=== PATIENT | female | born 1985 | race Caucasian/White ===

== ENCOUNTER 2018-01-29 15:30 | Emergency (ER) | payer OTHER ==
[~2018-01-29] VITALS: Ht 157.5 cm; Wt 79.4 kg
[~2018-01-29 15:30] MED LIST: ACET325; ACET500 PO; ACYC400 PO; ALBU90OI INH; AMLO5; AZIT250 PO; BENZ100A PO; CEPH500 PO; CLIN150 PO; CLIN300 PO; CYCL10 PO; Carvedilol12.5 MG PO; DOCU100 PO; DOXY100 PO; FURO20 PO; HYDACE5 PO; HYDACE5325 PO; IBUP800 PO; IRON150C PO; IRON325 MG PO; LISI10; LISI5 PO; MAGCHL64ER PO; MELO7.5 PO; METO25ER PO; Mucinex600 MG PO; NAPR500 PO; OMEP20ER PO; ONDA4ODT MM; OXYACE5T PO; POTCHL20ER PO; PRED20 PO; PROCODE120 PO; PROM25 PO; Percocet 5-3251 EACH PO; Prinivil10 MG PO; Protonix40 MG PO; RXHYDACE PO; RXONDA4ODT MM; RXPROM25 PO; Verotin-Gr Cap1 EACH PO; Vibramycin100 MG PO; Zofran Odt4 MG PO; Zofran Odt4 MG SL; [UNRECOGNIZED DRUG - OTHER]
[2018-01-29] MEDS ORDERED: Ultram50 MG PO (16:45)
== END 2018-01-29 16:51 | disposition home or self-care (01) ==
LOC: ER 15:30
DX: S09.90XA Unspecified injury of head, initial encounter (principal); S16.1XXA Strain of muscle, fascia and tendon at neck level, initial encounter; F32.9 Major depressive disorder, single episode, unspecified; F17.200 Nicotine dependence, unspecified, uncomplicated; V89.2XXA Person injured in unspecified motor-vehicle accident, traffic, initial encounter
CPT/HCPCS: 70450; 72125; 96372; 99284; J3010; L0160

== ENCOUNTER 2018-03-09 18:31 | Emergency (ER) | payer OTHER ==
[~2018-03-09] VITALS: Ht 157.5 cm; Wt 76.2 kg
[~2018-03-09 18:31] MED LIST changes: +Ultram50 MG PO
== END 2018-03-09 19:21 | disposition home or self-care (01) ==
LOC: ER 18:31
DX: F41.0 Panic disorder [episodic paroxysmal anxiety] (principal); F32.9 Major depressive disorder, single episode, unspecified; F17.200 Nicotine dependence, unspecified, uncomplicated
CPT/HCPCS: 93005; 93010; 99283-25

== ENCOUNTER 2021-01-08 23:45 | Emergency (ER) | payer OTHER ==
[~2021-01-08] VITALS: Ht 157.5 cm; Wt 93.4 kg
[2021-01-09] MEDS ORDERED: PRED20 PO (02:01)
[2021-01-09] MEDS ORDERED: ALBU90OI INH (02:01)
== END 2021-01-09 02:31 | disposition home or self-care (01) ==
LOC: ER 23:45
DX: J98.01 Acute bronchospasm (principal); F17.290 Nicotine dependence, other tobacco product, uncomplicated; Z88.2 Allergy status to sulfonamides; Z91.09 Other allergy status, other than to drugs and biological substances; Z91.040 Latex allergy status; Z87.891 Personal history of nicotine dependence
CPT/HCPCS: 71045; 99284-25; A9270

== ENCOUNTER 2021-05-22 14:10 | Emergency (ER) | payer OTHER ==
[~2021-05-22] VITALS: Ht 157.5 cm; Wt 99.8 kg
[2021-05-22 16:09] LABS: SARS-Cov-2 (COVID-19) PCR, MMC NEGATIVE (NEGATIVE)
[2021-05-22] MEDS ORDERED: PSEU120ER PO (16:40)
== END 2021-05-22 16:50 | disposition home or self-care (01) ==
LOC: ER 14:10
PROVIDERS: Physician Assistant
DX: J40 Bronchitis, not specified as acute or chronic (principal); J06.9 Acute upper respiratory infection, unspecified; Z20.822 Contact with and (suspected) exposure to COVID-19; Z91.018 Allergy to other foods; Z88.2 Allergy status to sulfonamides; Z91.048 Other nonmedicinal substance allergy status; Z88.0 Allergy status to penicillin; Z91.040 Latex allergy status; Z79.899 Other long term (current) drug therapy; Z87.891 Personal history of nicotine dependence
CPT/HCPCS: 99283; U0004

== ENCOUNTER 2021-07-04 20:39 | Emergency (ER) | payer OTHER ==
[~2021-07-04] VITALS: Ht 157.5 cm; Wt 90.7 kg
[~2021-07-04 20:39] MED LIST changes: +PSEU120ER PO
[2021-07-04] MEDS ORDERED: PRED20 PO (22:49)
== END 2021-07-04 23:25 | disposition home or self-care (01) ==
LOC: ER 20:39
DX: J20.9 Acute bronchitis, unspecified (principal); F12.90 Cannabis use, unspecified, uncomplicated; Z77.22 Contact with and (suspected) exposure to environmental tobacco smoke (acute) (chronic); Z91.018 Allergy to other foods; Z91.048 Other nonmedicinal substance allergy status; Z88.0 Allergy status to penicillin; Z91.040 Latex allergy status; Z88.8 Allergy status to other drugs, medicaments and biological substances; Z79.899 Other long term (current) drug therapy; Z87.891 Personal history of nicotine dependence
CPT/HCPCS: 71045; 99283-25; A9270; J7512

== ENCOUNTER 2022-04-22 21:32 | Emergency (ER) | payer OTHER ==
[~2022-04-22] VITALS: Ht 157.5 cm; Wt 111.1 kg
[2022-04-23] MEDS ORDERED: Prednisone50 MG PO (01:04)
== END 2022-04-23 01:20 | disposition home or self-care (01) ==
LOC: ER 21:32
DX: J45.901 Unspecified asthma with (acute) exacerbation (principal); Z79.52 Long term (current) use of systemic steroids; Z91.040 Latex allergy status; Z91.018 Allergy to other foods; Z88.0 Allergy status to penicillin; Z88.2 Allergy status to sulfonamides; Z91.09 Other allergy status, other than to drugs and biological substances
CPT/HCPCS: 94640; 94664; J7512

== ENCOUNTER 2025-06-01 00:21 | Day surgery (SDC) | payer OTHER ==
[~2025-06-01] VITALS: Wt 108.6 kg
[~2025-06-01 00:21] MED LIST changes: +ASPI81CH PO; +ATOR20 PO; +BREYNA 160-4.10.3 GM IH; +FLUT.05NI; +GABA100 PO; +HUMIRA40 MG/0.2 SC; +INCRUSE ELLIPTA INH; +METO25 PO; +MONT10T PO; +OXAYDO5 M1 PO; +PANT40 PO; +Prednisone50 MG PO; +WARF5 PO; +ZYRTEC10 M2 PO
[2025-06-01 15:17] VITALS: BP 121/69
[2025-06-01] MEDS ORDERED: INFLIXIMAB DYYB IV SCH (15:30)
[2025-06-01] MEDS ORDERED: NS IV SCH (15:30)
[2025-06-01 16:07] VITALS: BP 114/68
[2025-06-01 16:23] VITALS: BP 107/65
[2025-06-01 16:38] VITALS: BP 105/71
[2025-06-01 16:54] VITALS: BP 103/63
[2025-06-01 17:13] VITALS: BP 118/64
== END 2025-06-01 17:45 | disposition home or self-care (01) ==
LOC: ATC 00:21
DX: L40.0 Psoriasis vulgaris (principal); J44.9 Chronic obstructive pulmonary disease, unspecified; Z87.891 Personal history of nicotine dependence; Z88.1 Allergy status to other antibiotic agents; Z91.040 Latex allergy status; Z88.0 Allergy status to penicillin; Z91.048 Other nonmedicinal substance allergy status; Z88.2 Allergy status to sulfonamides; Z91.018 Allergy to other foods
CPT/HCPCS: 96413; 96415; J7050; Q5103

== ENCOUNTER 2025-06-15 02:04 | Day surgery (SDC) | payer OTHER ==
[~2025-06-15] VITALS: Wt 107.2 kg
[2025-06-15] MEDS ORDERED: Infliximab-DYYB 500 MG in NS 250 ML IV SCH (06:00)
[2025-06-15 14:07] VITALS: BP 115/70
[2025-06-15 14:55] VITALS: BP 103/56
[2025-06-15 15:10] VITALS: BP 102/55
[2025-06-15 15:29] VITALS: BP 106/64
[2025-06-15 15:47] VITALS: BP 101/65
[2025-06-15 16:02] VITALS: BP 103/68
== END 2025-06-15 16:40 | disposition home or self-care (01) ==
LOC: ATC 02:04
DX: L40.0 Psoriasis vulgaris (principal); J44.9 Chronic obstructive pulmonary disease, unspecified; F32.A Depression, unspecified; I25.2 Old myocardial infarction; Z87.891 Personal history of nicotine dependence; Z79.899 Other long term (current) drug therapy; Z88.0 Allergy status to penicillin; Z88.2 Allergy status to sulfonamides; Z91.018 Allergy to other foods; Z91.040 Latex allergy status; Z91.09 Other allergy status, other than to drugs and biological substances
CPT/HCPCS: 96413; 96415; J7050; Q5103

== ENCOUNTER 2025-07-31 06:27 | Day surgery (SDC) | payer OTHER ==
[~2025-07-31] VITALS: Wt 109.0 kg
[2025-07-31 09:17] VITALS: BP 121/76
[2025-07-31] MEDS ORDERED: Infliximab-DYYB 500 MG in NS 250 ML IV SCH (09:35)
== END 2025-07-31 12:08 | disposition home or self-care (01) ==
LOC: ATC 06:27
DX: L40.0 Psoriasis vulgaris (principal); J44.9 Chronic obstructive pulmonary disease, unspecified; F32.A Depression, unspecified; I25.2 Old myocardial infarction; Z87.891 Personal history of nicotine dependence; Z79.899 Other long term (current) drug therapy; Z88.8 Allergy status to other drugs, medicaments and biological substances; Z91.040 Latex allergy status; Z91.09 Other allergy status, other than to drugs and biological substances; Z88.2 Allergy status to sulfonamides; Z88.0 Allergy status to penicillin
CPT/HCPCS: 96413; 96415; J7050; Q5103